=== PATIENT | female | born 2000 | race Caucasian/White ===

== ENCOUNTER 2022-06-12 15:27 | Emergency (ER) | payer OTHER, SELFPAY ==
[2022-06-12 15:29] VITALS: BP 119/80; PULSE 140; RESP 16; TEMP 38.5; O2SAT 100; BMI 21.0
[2022-06-12 15:43] VITALS: TEMP 38.5
[2022-06-12] MEDS: ACETAMINOPHEN 500 MG TABLET 1000 MG PO (15:43)
--- NOTE | 2022-06-12 16:50 | ED_ITS ---
HPI - General Adult General Date Seen: 06/12/22 Chief complaint: Fever Stated complaint: Fever of 103.3, ongoing since Sunday Time Seen by Provider: 06/12/22 16:18 Source: patient Mode of arrival: ambulatory Limitations: no limitations History of Present Illness HPI narrative: Patient is a 22-year-old, donna at [place], who presents for re-evaluation of fever. She was at urgent care earlier today and had a negative COVID/influenza swab. She reports temperatures in the 99s the past couple of days and then it was 101 earlier today. After she got home from Urgent Care, she says that she checked her temperature again and it was 103 which is why she came to the ER. She has had general flu type symptoms, headaches, fatigue, body aches, she has had some nausea, vomited once, no longer feels nauseated. She has had a little bit of diarrhea. No significant abdominal pain. Denies urinary symptoms. No ill contacts that she is aware of. She had COVID a couple of months ago. She has not had significant cough, no chest pain or shortness of breath. As we were talking, she became somewhat tearful. She says that she is just having more difficulty year this year. Her classes are somewhat more challenging and she feels a little more isolated as she and her friends are all busy with school work and she does not see people as much as she used to. She does have a history of depression and anxiety, she has been on sertraline for quite some time. She has a therapist, but says she generally only makes an appointment with her therapist when she is having trouble. She does have an appointment for June 23, but says usually it takes a month or so to get an appointment on the books and when she starts to have trouble she wishes she can get an appointment right away. She denies suicidal ideation. She does tell me that she has some concerns about her eating, she says she has noting some bingeing behavior. She denies purging. She is worried about weight gain. Related Data Home Medications Medication Instructions Recorded Confirmed norethindrone (contraceptive) 0.35 0.35 mg PO QDAY 06/12/22 06/12/22 mg tablet sertraline 25 mg tablet 25 mg PO QDAY 06/12/22 06/12/22 Allergies Allergy/AdvReac Type Severity Reaction Status Date / Time No Known Drug Allergies Allergy Verified 06/12/22 15:35 Review of Systems Status of ROS: Reports: 10 or more systems reviewed and unremarkable except as noted in History and below [facility] Social History Smoking Status: Never smoker How often do you have a drink containing alcohol: monthly or less How often do you have six or more drinks on one occasion: Never AUDIT-C Alcohol total score: 1 Non-prescribed substance use: denies use Exam Narrative: Exam Narrative: Vital signs as noted above. In general, an alert, nontoxic young woman. Breathing easily. Appears well. Head: Normocephalic, atraumatic. Eyes: Pupils are equal reactive. Extraocular movements are full. Conjunctivae are normal. ENT: Mucous membranes are moist. Throat is normal. Neck: Supple without lymphadenopathy. Heart: Mildly tachycardic, improved from triage. No murmur. Lungs: Clear bilaterally. No increased work of breathing, crackles or wheezes. No CVA tenderness. Abdomen: Soft and nontender. No organomegaly. Extremities: Well perfused. No edema. No calf tenderness. Pulses intact. Neurologic: Patient is alert and oriented to person and place. Speech is fluent. Face is symmetric. Moves all extremities equally. Affect: Normal. Skin: Warm and dry. Well perfused. Const: Vital Signs, click to edit/add: Vital Signs - 24 hr 06/12/22 15:29 06/12/22 15:43 06/12/22 16:53 Temperature 101.3 F H 101.3 F H 99.2 F Pulse Rate [Right Pulse Oximeter] 140 H Respiratory Rate 16 Blood Pressure [Ri ght Upper Arm] 119/80 Pulse Oximetry 100 Oxygen Delivery Me thod Room Air 06/12/22 16:54 06/12/22 17:24 06/12/22 19:04 Temperature 99.2 F Pulse Rate [Right Pulse Oximeter] 107 H 99 Respiratory Rate Blood Pressure [Ri ght Upper Arm] 131/86 125/73 Pulse Oximetry 96 99 Oxygen Delivery Me thod Room Air Room Air Documenting provider has reviewed patient's vital signs: yes Course Course Hospital Course: Discussed with her that despite the higher fever this afternoon symptoms still are most likely viral in etiology. Will check a few blood tests for reassurance, but likely will recommend supportive care with ibuprofen Tylenol, rest, fluids. With regard to her mental health, we spent quite a bit of time talking about how to manage her stress and loneliness. She does have her upcoming appointment with her therapist. Discussed that it might be a good idea to just have a regularly scheduled appointment with her therapist that she would keep even if she is feeling better at the time. I have encouraged her to discuss her concerns about her eating behaviors with her therapist. If she is having more difficulties, she can return to the ER at any time. Labs are most notable for markedly decreased white blood cell count of 1.66. She is mildly anemic with a hemoglobin of 11.1, platelets are normal. I did check a Monospot that was negative. CRP minimally elevated at 1.9, sed rate was normal. LFTs largely unremarkable. AST is very mildly elevated at 39. I added on an [place] panel as well as an HIV. Overall, I think her leukopenia is still most likely to be viral in etiology, I did send a peripheral smear and I have asked her to follow up in a couple of days for recheck. CBC can be recheck at that time to make sure that this is rebounding and that there is no sign of worsening pancytopenia. Recommendations at this time remain the same. Vital signs are improved with resolution of her fever, tachycardia has resolved. Blood pressure remains normal. Vital Signs Vital signs: Initial Vital Signs Temperature 101.3 F H 06/12/22 15:29 Temperature Source Temporal Artery Scan 06/12/22 15:29 Pulse Rate 140 H 06/12/22 15:29 Respiratory Rate 16 06/12/22 15:29 Blood Pressure 119/80 06/12/22 15:29 Blood Pressure Mean 93 06/12/22 15:29 Blood Pressure Position Sitting 06/12/22 15:29 Pulse Oximetry 100 06/12/22 15:29 Oxygen Delivery Method Room Air 06/12/22 15:29 Vital Signs Temperature 101.3 F H 06/12/22 15:29 Pulse Rate 140 H 06/12/22 15:29 Respiratory Rate 16 06/12/22 15:29 Blood Pressure 119/80 06/12/22 15:29 Pulse Oximetry 100 06/12/22 15:29 Oxygen Delivery Method Room Air 06/12/22 15:29 Temperature 99.2 F 06/12/22 16:54 Pulse Rate 99 06/12/22 19:04 Respiratory Rate 16 06/12/22 15:29 Blood Pressure 125/73 06/12/22 19:04 Pulse Oximetry 99 06/12/22 19:04 Oxygen Delivery Method Room Air 06/12/22 19:04 Medical Decision Making Lab Data Labs: Lab Results 06/12/22 06/12/22 Range/Units 16:50 16:56 WBC 1.66 L* (4.50-11.00) K/uL RBC 3.75 L (4.00-5.20) m/uL Hgb 11.1 L (12.0-16.0) gm/dL Hct 33.2 (33.0-51.0) % MCV 89 (80-100) fL MCH 30 (26-34) pg MCHC 33 (32-36) gm/dL RDW Coeff of Neftali 12.3 (11.5-15.5) % Plt Count 176 (140-440) K/uL Neut % (Auto) 66.9 (42.0-72.0) % Lymph % (Auto) 18.7 L (20-44) % [place] % (Auto) 12.0 H (0.0-11.0) % Eos % (Auto) 0.6 (0.0-7.0) % Baso % (Auto) 0.6 (0.0-3.0) % Neut # (Auto) 1.10 L (1.7-7.0) K/uL Lymph # (Auto) 0.30 L (0.90-2.90) K/uL [place] # (Auto) 0.20 (0.00-0.90) K/UL Eos # (Auto) 0.00 (0.00-0.50) K/uL Baso # (Auto) 0.00 (0.00-0.30) K/uL Diff Slide Review Acceptable Review (Acceptable) ESR 17 (2-20) mm/hr Sodium 131 L (135-149) mmol/L Potassium 3.9 (3.6-5.1) mmol/L Chloride 104 (96-114) mmol/L Carbon Dioxide 20 (20-32) mmol/L BUN 6 (5-24) mg/dL Creatinine 0.5 (0.5-1.5) mg/dL Estimated Creat Clear 165.68 Estimated GFR 137 ml/min Glucose 105 (60-115) mg/dL Calcium 8.3 L (8.4-10.6) mg/dL Total Bilirubin 0.3 (0.1-1.5) mg/dL Direct Bilirubin 0.2 (0.0-0.5) mg/dL AST 39 H (12-35) U/L ALT 29 (4-35) U/L Alkaline Phosphatase 68 (40-150) U/L C-Reactive Protein 1.9 H (0.5-1.0) mg/dL Total Protein 7.0 (6.0-8.3) g/dL Albumin 3.9 (3.3-5.0) g/dL Monoscreen Negative (Negative) Discharge Plan Discharge Clinical Impression: Fever, Leukopenia Patient Disposition: Home, Self-Care Condition: Improved Instructions: Fever in Adults (ED) Additional Instructions: Your lab test today are overall unremarkable, with the exception of a low white blood cell count. Your white blood cell count today was 1.66. Often, low white blood cell counts in the setting of fever are due to a viral infection. Your mono screen was negative but I have sent off testing for the virus that causes mono. You could have a different viral infection as well. The rest of your labs are unremarkable. I would like you to be seen in a couple of days in clinic for recheck and repeat of your CBC. If in the meantime you are worsening, return to the emergency department. Prescriptions: No Action sertraline 25 mg tablet 25 mg PO QDAY norethindrone (contraceptive) 0.35 mg tablet 0.35 mg PO QDAY Follow Up/Referrals: Jenny Diaz MD [Primary Care Provider] - Stand Alone Forms: [employer] Info Instructions
[2022-06-12 16:53] VITALS: TEMP 37.3
[2022-06-12 16:54] VITALS: TEMP 37.3
[2022-06-12 16:56] LABS: Basophils Percent Auto 0.6 % (0.0-3.0); Eosinophils Percent Auto 0.6 % (0.0-7.0); Hematocrit 33.2 % (33.0-51.0); Hemoglobin* 11.1 gm/dL (12.0-16.0); Immature Granulocytes Pct Auto 1.2 %; Lymphocytes Percent Auto 18.7 % (20-44); Mean Corpuscular HGB Conc 33 gm/dL (32-36); Mean Corpuscular Hemoglobin 30 pg (26-34); Mean Corpuscular Volume 89 fL (80-100); Neutrophils Percent Auto 66.9 % (42.0-72.0); Platelet Count* 176 K/uL (140-440); RDW Coefficient of Variation % 12.3 % (11.5-15.5); Red Blood Count 3.75 m/uL (4.00-5.20)
[2022-06-12 17:10] LABS: Albumin* 3.9 g/dL (3.3-5.0); Chloride* 104 mmol/L (96-114); Potassium* 3.9 mmol/L (3.6-5.1); Sodium* 131 mmol/L (135-149)
[2022-06-12 17:12] LABS: Creatinine* 0.5 mg/dL (0.5-1.5); Est. Creatinine Clearance* 165.68; Estimated Glomerular Filt Rate 137 ml/min
[2022-06-12 17:13] LABS: Alkaline Phosphatase* 68 U/L (40-150); Aspartate Amino Transferase* 39 U/L (12-35); Bilirubin Direct* 0.2 mg/dL (0.0-0.5); Bilirubin Total* 0.3 mg/dL (0.1-1.5); Blood Urea Nitrogen* 6 mg/dL (5-24); Carbon Dioxide* 20 mmol/L (20-32); Slide Review Reflex Yes; White Blood Count* 1.66 K/uL (4.50-11.00)
[2022-06-12 17:14] LABS: Alanine Aminotransferase* 29 U/L (4-35); Calcium* 8.3 mg/dL (8.4-10.6); Glucose* 105 mg/dL (60-115)
[2022-06-12 17:16] LABS: C Reactive Protein* 1.9 mg/dL (0.5-1.0)
[2022-06-12 17:24] VITALS: BP 131/86; PULSE 107; O2SAT 96
--- NOTE | 2022-06-12 17:26 | ED.NURSE ---
Critical lab WBC 1.66, Block notified.
[2022-06-12 17:56] LABS: Slide Review Acceptable Review (Acceptable)
[2022-06-12 18:30] LABS: Mono Screen* Negative (Negative)
[2022-06-12 19:04] VITALS: BP 125/73; PULSE 99; O2SAT 99
[2022-06-12 19:28] LABS: Erythrocyte SedimentationRate* 17 mm/hr (2-20)
[2022-06-12 20:11] LABS: HIV 1/2/P24 Combo Screen* Negative (Negative)
[2022-06-12 21:06] LABS: Immature Reticulocyte Fraction 8.3 % (3.0-15.9); Reticulocyte Hemoglobin Equivi 27.9 pg (29.0-35.0); Reticulocyte Percent 1.3 % (0.5-2.0); Reticulocytes Absolute 0.05 # (0.03-0.08)
[2022-06-15 06:34] LABS: EBV Ab Nuclear Ag IgG <3.0 U/mL (0.0-21.9); EBV Ab Viral Capsid Ag IgG <10.0 U/mL (0.0-21.9); EBV Ab Viral Capsid Ag IgM <10.0 U/mL (0.0-43.9); EBV Ab to Early (D) Ag IgG <5.0 U/mL (0.0-10.9)
== END 2022-06-12 19:05 | disposition home or self-care (01) ==
PROVIDERS: Emergency Provider Emergency Medicine; PCP Family Medicine
DX: R50.9 Fever, unspecified (principal); D72.819 Decreased white blood cell count, unspecified
CPT/HCPCS: 36415; 80048; 80076; 85025; 85045; 85651; 86140; 86308; 86663; 86664; 86665; 86703; 99283; 99284; A9270

== ENCOUNTER 2023-02-21 15:56 | Emergency (ER) | payer OTHER, SELFPAY ==
[2023-02-21] VITALS (17 sets, daily range): BP systolic 136–170; BP diastolic 85–113; PULSE 81–99; RESP 18; TEMP 36.4; O2SAT 96–100; BMI 21.0
--- NOTE | 2023-02-21 16:21 | ED_ITS ---
HPI - Arrhythmia/Palpitations General Date Seen: 02/21/23 Chief Complaint: Arrhythmia/Palpitations Stated Complaint: chest pain, heart palpitations Time Seen by Provider: 02/21/23 16:01 Source: patient Mode of arrival: ambulatory Limitations: no limitations History of Present Illness HPI narrative: Patient is a 22-year-old female with no pertinent medical problems presenting to emergency department for chest pain and palpitations. She states he said that his symptoms at past 3 days. She states symptoms 1st started on Sunday and she feels like her heart is racing then have some chest pain. Has not noticed anything makes the pain better or worse other than 1 time yesterday when she lifted her left arm and cause the pain. She initially thought that she might have hurt the muscle due to that but can not remember hurting herself or any heavy lifting. She is currently asymptomatic. States she has had a few episodes of feeling the palpitations today and a few episodes of the chest pain yesterday. Has not had any chest pain today. No associated shortness of breath. Denies lightheadedness, dizziness, fevers, chills, viral symptoms, abdominal pain. Denies ever having symptoms like this before. No family history of heart disease. Related Data Home Medications Medication Instructions Recorded Confirmed norethindrone (contraceptive) 0.35 0.35 mg PO QDAY 06/12/22 06/12/22 mg tablet sertraline 25 mg tablet 25 mg PO QDAY 06/12/22 06/12/22 Allergies Allergy/AdvReac Type Severity Reaction Status Date / Time No Known Drug Allergies Allergy Verified 06/12/22 15:35 Review of Systems Status of ROS: Reports: 10 or more systems reviewed and unremarkable except as noted in History and below [facility] Social History Smoking Status: Never smoker How often do you have a drink containing alcohol: monthly or less How often do you have six or more drinks on one occasion: Never AUDIT-C Alcohol total score: 1 Non-prescribed substance use: denies use Exam Narrative: Exam Narrative: Const: Well-nourished, Well-developed, in no distress Eyes: PERRL, no conjunctival injection, and symmetrical lids HENT: Atraumatic external nose and ears. Moist mucous membranes. Neck: Symmetric, trachea midline, No thyromegaly. CVS: RRR, No murmurs or gallops. Peripheral pulses 2+ and equal in all extremities RESP: Unlabored respiratory effort. Clear to auscultation bilaterally. GI: Nontender/Nondistended, No rebound or guarding. MSK:Extremities w/o deformity, Normal Active ROM Skin: Warm, Dry. No rashes or lesions. Neuro: Normal Muscle tone, No focal neurological deficits. Psych: Awake, Alert, & Oriented x3. Appropriate mood and affect. Const: Vital Signs, click to edit/add: Vital Signs - 24 hr 02/21/23 16:07 02/21/23 16:22 02/21/23 16:30 Temperature 97.6 F Pulse Rate 88 94 Pulse Rate [Right Pulse Oximeter] 97 Respiratory Rate 18 Blood Pressure Blood Pressure [Ri ght Upper Arm] 170/89 H Pulse Oximetry 96 98 100 Oxygen Delivery Me thod Room Air 02/21/23 16:31 02/21/23 16:34 02/21/23 16:35 Temperature Pulse Rate 90 85 96 Pulse Rate [Right Pulse Oximeter] Respiratory Rate Blood Pressure 145/113 H 141/93 H Blood Pressure [Ri ght Upper Arm] Pulse Oximetry 99 99 99 Oxygen Delivery Me thod 02/21/23 16:45 02/21/23 17:00 02/21/23 17:01 Temperature Pulse Rate 88 88 87 Pulse Rate [Right Pulse Oximeter] Respiratory Rate Blood Pressure 139/87 Blood Pressure [Ri ght Upper Arm] Pulse Oximetry 98 98 98 Oxygen Delivery Me thod Course Vital Signs Vital signs: Initial Vital Signs Temperature 97.6 F 02/21/23 16:07 Temperature Source Temporal Artery Scan 02/21/23 16:07 Pulse Rate 97 02/21/23 16:07 Pulse Rhythm Regular 02/21/23 16:07 Respiratory Rate 18 02/21/23 16:07 Blood Pressure 170/89 H 02/21/23 16:07 Blood Pressure Mean 116 H 02/21/23 16:07 Blood Pressure Position Sitting 02/21/23 16:07 Pulse Oximetry 96 02/21/23 16:07 Oxygen Delivery Method Room Air 02/21/23 16:07 Vital Signs Temperature 97.6 F 02/21/23 16:07 Pulse Rate 97 02/21/23 16:07 Respiratory Rate 18 02/21/23 16:07 Blood Pressure 170/89 H 02/21/23 16:07 Pulse Oximetry 96 02/21/23 16:07 Oxygen Delivery Method Room Air 02/21/23 16:07 Temperature 97.6 F 02/21/23 16:07 Pulse Rate 87 02/21/23 17:01 Respiratory Rate 18 02/21/23 16:07 Blood Pressure 139/87 02/21/23 17:01 Pulse Oximetry 98 02/21/23 17:01 Oxygen Delivery Method Room Air 02/21/23 16:07 MDM - Arrhythmia/Palpitations MDM Narrative Medical decision making narrative: Patient is a 22-year-old female presenting to emergency department for chest pain and palpitations. Symptoms have been intermittent for the past few days and she has never had symptoms like this before. She has no tenderness to palpation of the chest is not seem to be musculoskeletal in nature. Differential includes pneumothorax, pneumonia, ACS, precordial catch syndrome. She is not short of breath at all and is not coughing seems unlikely to be a pulmonary embolism. COVID chest flu was negative. CBC and BMP showed no concerning abnormalities. Chest x-ray showed no concerning abnormalities. Troponin was within normal limits. Patient is otherwise doing well this time it has been asymptomatic throughout her time in the emergency department. She is safe for discharge and I informed her to follow up with the primary care provider about possible Holter monitor if symptoms persist. She states she understands. Lab Data Labs: Lab Results 02/21/23 02/21/23 Range/Units 16:25 16:30 WBC 5.46 (4.50-11.00) K/uL RBC 4.18 (4.00-5.20) m/uL Hgb 12.0 (12.0-16.0) gm/dL Hct 37.3 (33.0-51.0) % MCV 89 (80-100) fL MCH 29 (26-34) pg MCHC 32 (32-36) gm/dL RDW Coeff of Neftali 12.0 (11.5-15.5) % Plt Count 316 (140-440) K/uL Neut % (Auto) 51.6 (42.0-72.0) % Lymph % (Auto) 33.5 (20-44) % [place] % (Auto) 10.4 (0.0-11.0) % Eos % (Auto) 4.0 (0.0-7.0) % Baso % (Auto) 0.5 (0.0-3.0) % Neut # (Auto) 2.81 (1.7-7.0) K/uL Lymph # (Auto) 1.83 (0.90-2.90) K/uL [place] # (Auto) 0.60 (0.00-0.90) K/UL Eos # (Auto) 0.22 (0.00-0.50) K/uL Baso # (Auto) 0.03 (0.00-0.30) K/uL Abs Immat Gran (auto) 0.00 (0.00-0.30) K/uL Imm/Tot Granulo (auto) 0.0 % Sodium 138 (135-149) mmol/L Potassium 4.0 (3.6-5.1) mmol/L Chloride 107 (96-114) mmol/L Carbon Dioxide 22 (20-32) mmol/L Anion Gap 9 (7-15) mEq/L BUN 10 (5-24) mg/dL Creatinine 0.5 (0.5-1.5) mg/dL Estimated Creat Clear 165.68 Estimated GFR 137 ml/min Glucose 86 (60-115) mg/dL Calcium 9.2 (8.4-10.6) mg/dL SARS-CoV-2 (PCR) Negative SARS-CoV-2 (Negative) Influenza Type A (PCR) Negative PCR FLU A (Negative) Influenza Type B (PCR) Negative PCR FLU B (Negative) POC Troponin I 0.00 L (0.01-0.04) ng/ml Imaging Data Chest x-ray: Radiologist's impression: Lungs are clear. Normal chest radiographs. Dictated by Alanis Zayas MD @ 02/21/2023 5:24:23 PM ECG Data Attestation: I personally reviewed and interpreted this ECG as follows: Prior ECG tracings: not available for review Interpretation: Normal sinus rhythm with a short UT interval, rate of 86 beats per minute, normal axis, normal intervals QRS and QT, no ST or T-wave abnormalities Discharge Plan Discharge Clinical Impression: Palpitations Patient Disposition: Home, Self-Care Condition: Stable Instructions: Heart Palpitations (DC) Additional Instructions: If symptoms persist follow-up with the primary care provider about getting a Holter monitor. Return to emergency department for new worsening symptoms. Prescriptions: No Action sertraline 25 mg tablet 25 mg PO QDAY norethindrone (contraceptive) 0.35 mg tablet 0.35 mg PO QDAY Follow Up/Referrals: Jenny Diaz MD [Primary Care Provider] - Stand Alone Forms: [employer] Info Instructions
--- NOTE | 2023-02-21 16:21 | CRLHL7_ITS ---
For Patients: As a result of the Century Cures Act, medical imaging exams and procedure reports are released immediately into your electronic medical record. You may view this report before your referring provider. If you have questions, please contact your health care provider. INDICATION: Chest pain COMPARISON: None. TECHNIQUE: PA and lateral 2 view chest radiograph. FINDINGS: The lungs are well expanded. No focal consolidations. No pulmonary edema. No pleural effusion. No pneumothorax. No pneumomediastinum. Normal cardiomediastinal silhouette. Bones: Curvature. IMPRESSION: Lungs are clear. Normal chest radiographs. Dictated by Alanis Zayas MD @ 02/21/2023 5:24:23 PM (Electronically Signed)
[2023-02-21 16:46] LABS: Basophils Absolute Auto 0.03 K/uL (0.00-0.30); Basophils Percent Auto 0.5 % (0.0-3.0); Eosinophils Absolute Auto 0.22 K/uL (0.00-0.50); Hematocrit 37.3 % (33.0-51.0); Lymphocytes Absolute Auto 1.83 K/uL (0.90-2.90); Lymphocytes Percent Auto 33.5 % (20-44); Mean Corpuscular HGB Conc 32 gm/dL (32-36); Mean Corpuscular Hemoglobin 29 pg (26-34); Mean Corpuscular Volume 89 fL (80-100); Monocytes Percent Auto 10.4 % (0.0-11.0); Neutrophils Absolute Auto 2.81 K/uL (1.7-7.0); Neutrophils Percent Auto 51.6 % (42.0-72.0); Platelet Count* 316 K/uL (140-440); Red Blood Count 4.18 m/uL (4.00-5.20); White Blood Count* 5.46 K/uL (4.50-11.00)
[2023-02-21 16:47] LABS: Slide Review Reflex No
[2023-02-21 17:00] LABS: Chloride* 107 mmol/L (96-114); Sodium* 138 mmol/L (135-149)
[2023-02-21 17:03] LABS: Anion Gap 9 mEq/L (7-15); Blood Urea Nitrogen* 10 mg/dL (5-24); Calcium* 9.2 mg/dL (8.4-10.6); Carbon Dioxide* 22 mmol/L (20-32); Creatinine* 0.5 mg/dL (0.5-1.5); Est. Creatinine Clearance* 165.68; Estimated Glomerular Filt Rate 137 ml/min; Glucose* 86 mg/dL (60-115)
[2023-02-21 17:17] LABS: PCR FLU A Negative PCR FLU A (Negative); PCR FLU B Negative PCR FLU B (Negative)
[2023-02-21 17:50] LABS: SARS PCR* Negative SARS-CoV-2 (Negative)
== END 2023-02-21 18:22 | disposition home or self-care (01) ==
PROVIDERS: Emergency Provider Student in an Organized Health Care Education/Training Program; PCP Family Medicine
DX: R00.2 Palpitations (principal); R07.9 Chest pain, unspecified
CPT/HCPCS: 36415; 71046; 80048; 84484; 85025; 87631; 93005; 95992; 99283; 99284; 99285